=== PATIENT | female | born 1950 | race Caucasian/White ===

== ENCOUNTER → 2020-11-17 | Outpatient (CLI) | payer OTHER | LOC: HEART 5 13:20 | DX: R00.1 Bradycardia, unspecified (principal); R07.89 Other chest pain ==

== ENCOUNTER → 2020-12-10 | Outpatient (CLI) | payer OTHER | LOC: HEART 5 07:52 | DX: R00.1 Bradycardia, unspecified (principal); R07.89 Other chest pain; I08.1 Rheumatic disorders of both mitral and tricuspid valves | CPT/HCPCS: 78452; 93306; A9502 ==